=== PATIENT | male | born 1965 | race Caucasian/White ===

== ENCOUNTER 2016-09-27 12:19 | Emergency (ER) | payer MEDICARE, MEDICAID ==
[~2016-09-27] VITALS: Ht 172.7 cm; Wt 90.7 kg
[~2016-09-27 12:19] MED LIST: ACYCLOVIR400 MG PO; AMBIEN10 MG PO; BACTRIM-DS1 EA ORAL; BACTRIM-DS1 EA PO; BUPROPION HCL75 MG PO; DOXYCYCLINE MO100 MG ORAL; FLONASE1 SPRAYS; ISENTRESS400 MG PO; KLONOPIN1 MG PO; LEXAPRO20 MG ORAL; LEXAPRO20 MG PO; LIDODERM700 M1 TP; LOMOTIL TABLET1 EACH PO; LYRICA25 MG PO; NORCO 10/3251 EA ORAL; NORCO 5-325 TA1 EACH ORAL; NORCO1 E1 ORAL; NORVIR100 MG ORAL; PERCOCET 10-321 EACH ORAL; PRAVASTATIN SOD40 M1 PO; PREZISTA400 MG ORAL; PROAIR HFA8.5 GM INH; SELZENTRY150 MG PO; SEROSTIM6 M1 SQ; SOMA350 MG PO; TESTOSTERONE5 GM IM; TRAMADOL HCL100 MG PO; TRAZODONE HCL150 MG PO; TRUVADA 200 MG1 EAC1 ORAL; VICODIN 5-5001 EACH PO; ZIAGEN300 MG PO; ZOVIRAX800 MG ORAL
[2016-09-27] MEDS ORDERED: PREZCOBIX 8001 EACH PO (12:46)
[2016-09-27] MEDS ORDERED: DESCOVY 200-251 EACH PO (12:46)
--- NOTE | 2016-09-27 12:59 | Emergency Room Report ---
History of Present Illness General Chief Complaint: Edema Source: Patient (GUERRERO ORTA) Present Illness HPI The patient is a 51-year-old male with a history of HIV presenting for 2 weeks of wheezing and productive cough. Patient also admits to subjective fevers. The patient states that he experiences chest pain but only with coughing. Pt denies recent sick contacts or travel. Pt denies hemoptysis, night sweats, weight loss, MANCERA, SOB, numbness/tingling (GUERRERO ORTA P.A.) Allergies: Coded Allergies: METOCLOPRAMIDE (Verified Allergy, Severe, SEIZURES, 04/22/10) NAPROXEN (Verified Allergy, Severe, SWELLING, 04/22/10) PROCHLORPERAZINE (Verified Allergy, Severe, SEIZURES, 04/22/10) AZTREONAM (Verified Allergy, Mild, HIVES, 01/27/12) CEPHALEXIN (Verified Allergy, Mild, HIVES, 04/22/10) ZIDOVUDINE (Verified Allergy, Mild, HIVES, 01/27/12) CEFEPIME (Verified Allergy, Unknown, 01/18/16) METHYLPREDNISOLONE (Verified Allergy, Unknown, 01/18/16) pt states his platelets dramatically decrease when he has taken it in the past ASPIRIN (Verified Adverse Reaction, Severe, THROMBOCYTOPENIA, 01/27/12) Patient History Past Medical History: see triage record, HIV Pertinent Family History: none Reviewed Nursing Documentation: PMH: Agreed, PSxH: Agreed (GUERRERO ORTA) Nursing Documentation-PMH Past Medical History: No History, Except For Hx Hypertension: Yes Hx Asthma: Yes Hx COPD: No Hx Diabetes: No Hx Cancer: No Hx Gastrointestinal Problems: Yes - Hepatitis C Hx Dialysis: No Hx Neurological Problems: Yes - 3x fusion, lamenectomy Lower bk Hx Cerebrovascular Accident: Yes Hx Seizures: Yes Hx Tremors: Yes Hx Vertigo: Yes Hx Weakness: Yes (GUERRERO ORTA P.ASonya) Review of Systems All Other Systems: negative except mentioned in HPI (GUERRERO ORTA P.A.) Physical Exam Vital Signs Date Time Temp Pulse Resp B/P Pulse Ox O2 Delivery O2 Flow Rate FiO2 09/27/16 12:36 97.7 112 16 113/71 98 Room Air Sp02 EP Interpretation: reviewed, normal General Appearance: no apparent distress, alert, GCS 15, non-toxic Head: normocephalic, atraumatic Eyes: bilateral eye PERRL, bilateral eye normal inspection ENT: hearing grossly normal, normal pharynx, no angioedema, normal voice Neck: full range of motion, supple/symm/no masses Respiratory: no respiratory distress, no retraction, no accessory muscle use, speaking full sentences, wheezing - diffuse\ Cardiovascular #1: regular rate, rhythm, no edema Musculoskeletal: back normal, gait/station normal, normal range of motion, non- tender Neurologic: alert, oriented x3, responsive, motor strength/tone normal, sensory intact, speech normal Psychiatric: judgement/insight normal, memory normal, mood/affect normal, no suicidal/homicidal ideation Reflexes: 3+ bicep (R), 3+ bicep (L), 3+ tricep (R), 3+ tricep (L), 3+ knee (R) , 3+ knee (L) Skin: normal color, no rash, warm/dry, well hydrated Lymphatic: no adenopathy (GUERRERO ORTA P.A.) Medical Decision Making PA Attestation Dr. Coello is my supervising physician. Patient management was discussed with my supervising physician (GUERRERO ORTA P.ASonya) Diagnostic Impression: Primary Impression: Bronchitis ER Course The patient is a 51-year-old male with a history of HIV presenting for 2 weeks of wheezing and productive cough. Differential diagnosis include but not limited to pharyngitis, sinusitis, AOM, bronchitis, PNA PE: All vitals WNL at time of DC. Afebrile. NAD. HEENT unremarkable. Lungs: bilat diffuse wheezing. CXR is unremarkable. The pt will be treated for bronchitis with albuterol, oral steroids, and cough medication. ER precautions given (GUERRERO ORTA P.A.) ER Course Scribe documentation reviewed by me and is accurate. (Car Coello M.D.) Chest X-Ray Diagnostic Results EP Interpretation: Yes Findings: no consolidation, no effusion, no pneumothorax Number of Views: 1 PA Scribe Text I am acting as scribe for my supervising physician. My supervising physician's interpretation of the chest xrays are there is no consolidation, no effusion, no acute cardiopulmonary disease, no pneumothorax (GUERRERO ORTA P.A.) Last Vital Signs Date Time Temp Pulse Resp B/P Pulse Ox O2 Delivery O2 Flow Rate FiO2 09/27/16 12:36 97.7 112 16 113/71 98 Room Air Status: improved (GUERRERO ORTA P.A.) Last Vital Signs Date Time Temp Pulse Resp B/P Pulse Ox O2 Delivery O2 Flow Rate FiO2 09/27/16 14:47 97.7 98 16 116/70 98 Room Air (Car Coello M.D.) Disposition: HOME, SELF-CARE Condition: Improved Scripts Albuterol Sulfate* (PROAIR HFA*) 8.5 Gm Hfa.aer.ad 2 PUFFS INH Q6H, #8.5 GM 0 Refills Prov: RALPH ORTAY P.A. 09/27/16 Prednisone* (PREDNISONE*) 20 Mg Tablet 40 MG ORAL DAILY, #10 TAB Prov: RALPH ORTAY P.A. 09/27/16 Guaifenesin/Dextromethorphan (Robitussin Cough-Chest Dm Liq) 118 Ml Liquid 10 ML PO Q4HR, #118 ML Prov: TERKAYEANGUERRERO P.A. 09/27/16 Referrals: JAVID BECKHAM (PCP) GUERRERO ORTA P.ASonya Sep 27, 2016 12:59 Car Coello M.D. Sep 29, 2016 01:23
[2016-09-27 13:22] VITALS: BP 113/71
[2016-09-27] MEDS ORDERED: PREDNISONE20 MG ORAL (14:18)
[2016-09-27] MEDS ORDERED: PROAIR HFA8.5 GM INH (14:18)
[2016-09-27] MEDS ORDERED: ROBITUSSIN COU118 M4 PO (14:18)
[2016-09-27 14:22] VITALS: BP 116/70
[2016-09-27 14:47] VITALS: BP 116/70
--- NOTE | 2016-09-28 13:00 | Diagnostic Imaging Report ---
Indication: COUGH Technique: One view of the chest Comparison: 01/18/2016 Findings: Lungs and pleural spaces are clear. Some scarring is seen in the right perihilar region. There is surgical spinal fusion hardware in the lower cervical spine. Heart size is normal. No significant interim change Impression: No acute process
== END 2016-09-27 14:48 | disposition home or self-care (01) ==
LOC: EMR 12:50
DX: J45.909 Unspecified asthma, uncomplicated (principal); I10 Essential (primary) hypertension; Z98.1 Arthrodesis status; Z88.8 Allergy status to other drugs, medicaments and biological substances; Z88.1 Allergy status to other antibiotic agents; Z88.6 Allergy status to analgesic agent
CPT/HCPCS: 71010; 99284

== ENCOUNTER 2017-04-03 10:47 | Emergency (ER) | payer MEDICARE, MEDICAID ==
[~2017-04-03] VITALS: Ht 177.8 cm; Wt 81.6 kg
[~2017-04-03 10:47] MED LIST changes: +DESCOVY 200-251 EACH PO; +PREDNISONE20 MG ORAL; +PREZCOBIX 8001 EACH PO; +ROBITUSSIN COU118 M4 PO
[2017-04-03 11:16] VITALS: BP 130/75
--- NOTE | 2017-04-03 11:48 | Emergency Room Report ---
History of Present Illness General Chief Complaint: Upper Respiratory Illness Source: Patient Present Illness HPI This patient has a history of HIV. He denies that he has had AIDS defining illnesses. He also has a history of hepatitis C but underwent treatment for cure. He complains of cough and congestion with bloody sputum for the past few days. He also feels like he may have the flu as he has had nausea and vomiting and has been unable to tolerate his regular medications. He states he is also out of his chronic pain medications. He has no other complaints. Allergies: Coded Allergies: METOCLOPRAMIDE (Verified Allergy, Severe, SEIZURES, 04/22/10) NAPROXEN (Verified Allergy, Severe, SWELLING, 04/22/10) PROCHLORPERAZINE (Verified Allergy, Severe, SEIZURES, 04/22/10) AZTREONAM (Verified Allergy, Mild, HIVES, 01/27/12) CEPHALEXIN (Verified Allergy, Mild, HIVES, 04/22/10) ZIDOVUDINE (Verified Allergy, Mild, HIVES, 01/27/12) CEFEPIME (Verified Allergy, Unknown, 01/18/16) METHYLPREDNISOLONE (Verified Allergy, Unknown, 01/18/16) pt states his platelets dramatically decrease when he has taken it in the past ASPIRIN (Verified Adverse Reaction, Severe, THROMBOCYTOPENIA, 01/27/12) Patient History Past Medical History: see triage record, HTN, [place], CAD, seizures, psych hx, HIV , other - HCV Reviewed Nursing Documentation: PMH: Agreed, PSxH: Agreed Nursing Documentation-PMH Hx Hypertension: Yes Hx Asthma: Yes Hx COPD: No Hx Diabetes: No Hx Cancer: No Hx Gastrointestinal Problems: Yes - Hepatitis C Hx Dialysis: No History Of Psychiatric Problem: Yes - Manic Depressive Hx Neurological Problems: Yes - 3x fusion, lamenectomy Lower bk Hx Cerebrovascular Accident: Yes Hx Seizures: Yes Hx Tremors: Yes Hx Vertigo: Yes Hx Weakness: Yes Review of Systems All Other Systems: negative except mentioned in HPI Physical Exam Vital Signs Date Time Temp Pulse Resp B/P Pulse Ox O2 Delivery O2 Flow Rate FiO2 04/03/17 10:50 98.2 95 16 126/69 93 Room Air Sp02 EP Interpretation: reviewed, normal General Appearance: no apparent distress, alert, GCS 15, non-toxic Head: normocephalic, atraumatic Eyes: bilateral eye PERRL, bilateral eye normal inspection ENT: hearing grossly normal, normal pharynx, no angioedema, normal voice Neck: full range of motion, supple/symm/no masses Respiratory: chest non-tender, lungs clear, normal breath sounds, speaking full sentences Cardiovascular #1: regular rate, rhythm, no edema Gastrointestinal: normal bowel sounds, non tender, soft, non-distended, no guarding, no rebound Rectal: deferred Musculoskeletal: back normal, gait/station normal, normal range of motion, non- tender Neurologic: alert, oriented x3, responsive, motor strength/tone normal, sensory intact, speech normal Psychiatric: judgement/insight normal, memory normal, mood/affect normal, no suicidal/homicidal ideation Skin: normal color, no rash, warm/dry, well hydrated Medical Decision Making Diagnostic Impression: Primary Impression: Opiate dependence Additional Impressions: Human immunodeficiency virus (HIV) seropositivity Pneumonia ER Course This patient is found to have a pneumonia on the right lower lobe. There is also findings that could be tuberculosis or a mass. Patient has a history of HIV and so could have any possible infection. Patient is given Rocephin IV. He is also given IV fluids. He was having nausea vomiting and I suspect he was withdrawing from narcotics. He reports that he ran out of his pain medications. His urine drug screen was positive for cocaine, amphetamines and opiates. The patient was awaiting admission to the hospital and became agitated and a left AGAINST MEDICAL ADVICE. The patient was uncomfortable with being admitted to this hospital. He was educated on the dangers of leaving AGAINST MEDICAL ADVICE. He states that he was going to go to [facility]. The patient is competent to make his decisions. Labs Test 04/03/17 11:36 White Blood Count 6.7 K/UL (4.8-10.8) Red Blood Count 5.34 M/UL (4.70-6.10) Hemoglobin 15.7 G/DL (14.2-18.0) Hematocrit 48.3 % (42.0-52.0) Mean Corpuscular Volume 90 FL (80-99) Mean Corpuscular Hemoglobin 29.5 PG (27.0-31.0) Mean Corpuscular Hemoglobin Concent 32.6 G/DL (32.0-36.0) Red Cell Distribution Width 14.0 % (11.6-14.8) Platelet Count 145 K/UL (150-450) Mean Platelet Volume 13.6 FL (6.5-10.1) Neutrophils (%) (Auto) 63.1 % (45.0-75.0) Lymphocytes (%) (Auto) 26.8 % (20.0-45.0) Monocytes (%) (Auto) 9.1 % (1.0-10.0) Eosinophils (%) (Auto) 0.1 % (0.0-3.0) Basophils (%) (Auto) 0.8 % (0.0-2.0) Prothrombin Time 10.6 SEC (9.30-11.50) Prothromb Time International Ratio 1.0 (0.9-1.1) Activated Partial Thromboplast Time 34 SEC (23-33) Sodium Level 132 mEQ/L (135-145) Potassium Level 4.3 mEQ/L (3.4-4.9) Chloride Level 94 mEQ/L (98-107) Carbon Dioxide Level 24 mEQ/L (20-30) Anion Gap 14 (5-15) Blood Urea Nitrogen 15 mg/dL (7-23) Creatinine 1.2 mg/dL (0.7-1.2) Estimat Glomerular Filtration Rate > 60 mL/min (>60) Glucose Level 115 mg/dL (74-106) Calcium Level 9.1 mg/dL (8.6-10.2) Total Bilirubin 0.3 mg/dL (0.0-1.2) Aspartate Amino Transf (AST/SGOT) 78 U/L (5-40) Alanine Aminotransferase (ALT/SGPT) 20 U/L (3-41) Alkaline Phosphatase 60 U/L (40-129) Total Creatine Kinase 4243 U/L (38-174) Creatine Kinase MB 12.8 ng/mL (< 6.7) Creatine Kinase MB Relative Index 0.3 Troponin I < 0.30 ng/mL (<=0.30) Total Protein 7.8 g/dL (6.6-8.7) Albumin 4.1 g/dL (3.5-5.2) Globulin 3.7 g/dL Albumin/Globulin Ratio 1.1 (1.0-2.7) Urine Opiates Screen Positive (NEGATIVE) Urine Barbiturates Screen Negative (NEGATIVE) Phencyclidine (PCP) Screen Negative (NEGATIVE) Urine Amphetamines Screen Positive (NEGATIVE) Urine Benzodiazepines Screen Positive (NEGATIVE) Urine Cocaine Screen Negative (NEGATIVE) Urine Marijuana (THC) Screen Positive (NEGATIVE) EKG Diagnostic Results Rate: normal Rhythm: NSR ST Segments: no acute changes Rhythm Strip Diag. Results EP Interpretation: yes Rate: 80's Rhythm: NSR, no PVC's, no ectopy Chest X-Ray Diagnostic Results Chest X-Ray Diagnostic Results : Chest X-Ray Ordered: Yes # of Views/Limited/Complete: 1 View Indication: Chest Pain EP Interpretation: No Impression: Other - RML and RLL opacity. Last Vital Signs Date Time Temp Pulse Resp B/P Pulse Ox O2 Delivery O2 Flow Rate FiO2 04/03/17 11:16 93 17 130/75 95 Room Air 04/03/17 10:50 98.2 Disposition: AGAINST MEDICAL ADVICE Condition: Serious Referrals: JAVID BECKHAM (PCP) GREG BRAND D.O. Apr 03, 2017 11:48
[2017-04-03 12:03] LABS: BASOPHILS % (AUTO) 0.8 % (0.0-2.0); EOSINOPHILS % (AUTO) 0.1 % (0.0-3.0); LYMPHOCYTES % (AUTO) 26.8 % (20.0-45.0); MEAN CORPUSCULAR HEMOGLOBIN 29.5 PG (27.0-31.0); MEAN CORPUSCULAR HGB CONC 32.6 G/DL (32.0-36.0); MEAN CORPUSCULAR VOLUME 90 FL (80-99); MEAN PLATELET VOLUME 13.6 FL (6.5-10.1); MONOCYTES % (AUTO) 9.1 % (1.0-10.0); NEUTROPHILS % (AUTO) 63.1 % (45.0-75.0); PLATELET COUNT 145 K/UL (150-450); RED BLOOD COUNT 5.34 M/UL (4.70-6.10); WHITE BLOOD COUNT 6.7 K/UL (4.8-10.8)
[2017-04-03 12:11] LABS: PROTHROMBIN TIME 10.6 SEC (9.30-11.50)
[2017-04-03 12:14] LABS: TROPONIN I < 0.30 ng/mL (<=0.30)
[2017-04-03] MEDS ORDERED: Morphine Sulfate 4mg/ml Inj IVP ONE (12:15)
[2017-04-03 12:17] LABS: ALANINE AMINOTRANSFERASE 20 U/L (3-41); ALBUMIN/GLOBULIN RATIO 1.1 (1.0-2.7); ANION GAP 14 (5-15); ASPARTATE AMINO TRANSFERASE 78 U/L (5-40); CALCIUM 9.1 mg/dL (8.6-10.2); CARBON DIOXIDE 24 mEQ/L (20-30); CHLORIDE 94 mEQ/L (98-107); CREATININE 1.2 mg/dL (0.7-1.2); GLOMERULAR FILTRATION RATE > 60 mL/min (>60); HEMOLYSIS 7; POTASSIUM 4.3 mEQ/L (3.4-4.9); SODIUM 132 mEQ/L (135-145); TOTAL PROTEIN 7.8 g/dL (6.6-8.7)
[2017-04-03 12:27] LABS: CKMB 12.8 ng/mL (< 6.7)
[2017-04-03 13:00] VITALS: BP 124/72
[2017-04-03] MEDS ORDERED: cefTRIAXone 1 GM in NS 55 ML IVPB ONE (14:15)
[2017-04-03 14:32] LABS: ABG BASE EXCESS -1.2; ABG PCO2 42.4 mmHg (35.0-45.0)
[2017-04-03 14:33] LABS: ABG ALLEN TEST POSITIVE
--- NOTE | 2017-04-03 15:11 | Diagnostic Imaging Report ---
Indication: PAIN shortness of breath Technique: One view of the chest Comparison: 09/27/2016 Findings: Ill-defined right perihilar and basilar parenchymal opacities are demonstrated. At the right lung base appears somewhat rounded and masslike, measures 6.3 cm in diameter. There are also prominent interstitial markings bilaterally, more so than previously. Pleural spaces are clear. Heart size is normal. Cervical spine fusion hardware is incidentally noted Impression: Right mid and lower lung opacity, likely pneumonia. That at the right lung base is equivocally somewhat masslike, however. Followup radiographs are recommended to resolution Equivocal mild bilateral diffuse interstitial disease as well Findings discussed by phone with Dr. Blum in emergency room at the time of interpretation
[2017-04-03 15:40] VITALS: BP 111/70
--- NOTE | 2017-04-18 15:49 | Cardiology Report ---
APPROVED REPORT EKG Measurement Heart [id number] Normal sinus rhythm Early repolarization Normal ECG
== END 2017-04-03 15:40 | disposition left against medical advice (07) ==
LOC: EMR 11:20
DX: J18.9 Pneumonia, unspecified organism (principal); F11.20 Opioid dependence, uncomplicated; B20 Human immunodeficiency virus [HIV] disease; I10 Essential (primary) hypertension; J45.909 Unspecified asthma, uncomplicated
CPT/HCPCS: 36415; 36600; 71010; 80053; 80300; 82550; 82553; 82803; 83605; 84484; 85025; 85610; 85730; 87040; 93005; 96361; 96374; 96375; 99284; J0696; J2270; 96360